=== PATIENT | male | born 1935 | race Caucasian/White ===

== ENCOUNTER 2017-02-28 07:46 | Outpatient (CLI) | payer MEDICARE, BC ==
[2017-02-28 12:54] LABS: BASOPHILS % (AUTO) 0.4 %; EOSINOPHILS # (AUTO) 0.2 10^3/uL (0.0-0.7); EOSINOPHILS % (AUTO) 2.6 %; HCT - HEMATOCRIT 42.2 % (42.0-52.0); HGB - HEMOGLOBIN 14.2 g/dL (14.0-18.0); LYMPHOCYTES # (AUTO) 2.7 10^3/uL (1.5-3.5); LYMPHOCYTES % (AUTO) 45.1 %; MEAN CORPUSCULAR HEMOGLOBIN 31.2 pg (27.0-31.0); MEAN CORPUSCULAR HGB CONC 33.8 g/dL (32.0-36.0); MEAN CORPUSCULAR VOLUME 92.2 fL (80.0-94.0); MEAN PLATELET VOLUME 7.7 fL (7.4-11.4); MONOCYTES # (AUTO) 0.5 10^3/uL (0.0-1.0); MONOCYTES % (AUTO) 8.1 %; NEUTROPHILS # (AUTO) 2.6 10^3/uL (1.5-6.6); NEUTROPHILS % (AUTO) 43.8 %; RED BLOOD COUNT 4.57 10^6/uL (4.70-6.10); UNCORRECTED WHITE BLOOD COUNT 5.9 x10^3/uL; WHITE BLOOD COUNT 5.9 x10^3/uL (4.8-10.8)
[2017-02-28 12:55] LABS: ALBUMIN/GLOBULIN RATIO 1.3 (1.0-2.2); BUN - BLOOD UREA NITROGEN 17 mg/dL (6-20); CALCIUM 8.9 mg/dL (8.5-10.3); CARBON DIOXIDE - CO2 24 mmol/L (21-32); CHLORIDE 108 mmol/L (101-111); CHOL/HDL RATIO 3.3 (<5.0); CHOLESTEROL 146 mg/dL; CREATININE 0.9 mg/dL (0.6-1.2); GFR - MDRD 81 (>89); GLUCOSE 86 mg/dL (70-100); HDL CHOLESTEROL 44 mg/dL; LDL/HDL RATIO 2.1 (<3.6); POTASSIUM 3.9 mmol/L (3.5-5.0); SODIUM 138 mmol/L (135-145); TOTAL PROTEIN 6.7 g/dL (6.7-8.2); TRIGLYCERIDES 55 mg/dL; VLDL CHOLESTEROL 11 mg/dL
[2017-02-28 13:03] LABS: HEMOGLOBIN A1C 0.63 g/dL
== END 2017-02-28 07:47 | disposition home or self-care (01) ==
LOC: LAB.F 07:46
PROVIDERS: ATTEND Internal Medicine
DX: R89.9 Unspecified abnormal finding in specimens from other organs, systems and tissues (principal); Z79.899 Other long term (current) drug therapy; E78.5 Hyperlipidemia, unspecified; N40.0 Benign prostatic hyperplasia without lower urinary tract symptoms; H40.9 Unspecified glaucoma
CPT/HCPCS: 36415; 80053; 80061; 83036; 84443; 85025

== ENCOUNTER 2018-01-11 10:25 | Outpatient (CLI) | payer MEDICARE, BC ==
--- NOTE | 2018-01-11 12:10 | Ultrasound Report ---
Procedure Date: 01/11/2018 Accession Number: [id number] / [id number] Procedure: US - Carotid Doppler Complete CPT Code: FULL RESULT: EXAM: BILATERAL CAROTID AND VERTEBRAL ARTERY DUPLEX DOPPLER ULTRASOUND: EXAM DATE: 01/11/2018 11:59 AM CLINICAL HISTORY: Diplopia. COMPARISON: None. TECHNIQUE: Grayscale imaging, color Doppler, and duplex spectral Doppler were used to evaluate the carotid and vertebral arteries bilaterally. Static images were obtained. FINDINGS: No significant plaque is identified in the right or left common or internal carotid arteries. Normal antegrade flow is present in bilateral vertebral arteries. VELOCITIES (cm/sec): Right CCA mid: PSV 80 cm/sec CCA dist: PSV 59 cm/sec ICA prox: PSV 25 cm/sec, EDV 8 cm/sec ICA mid: PSV 32 cm/sec, EDV 12 cm/sec ICA dist: PSV 59 cm/sec, EDV 20 cm/sec ECA: PSV 81 cm/sec Vert: PSV 60 cm/sec ICA/CCA: 1.0 Left CCA mid: PSV 62 cm/sec CCA dist: PSV 62 cm/sec ICA prox: PSV 61 cm/sec, EDV 24 cm/sec ICA mid: PSV 63 cm/sec, EDV 21 cm/sec ICA dist: PSV 63 cm/sec, EDV 23 cm/sec ECA: PSV 67 cm/sec Vert: PSV 26 cm/sec ICA/CCA: 1.0 ICA diameter stenosis: Right: <50% by velocity and <70% by NASCET criteria. Left: <50% by velocity and <70% by NASCET criteria. IMPRESSION: 1. No significant bilateral carotid artery plaquing. 2. In the right carotid artery there are no elevated carotid artery velocities to suggest hemodynamically significant stenosis. 3. In the left carotid artery there are no elevated carotid artery velocities to suggest hemodynamically significant stenosis. 4. Normal antegrade flow is present in bilateral vertebral arteries. General Recommendations: Stenosis =50% ICA - Follow-up ultrasound 6-12 months Stenosis <50% ICA - High Risk Patient with plaque - Follow-up ultrasound 1-2 years Normal Study but High Risk Patient - Follow-up ultrasound 3-5 years Management recommendations and diagnostic criteria are based on current IAC endorsed standards in Carotid Artery Stenosis: Grayscale and Doppler Ultrasound Diagnosis. Validated velocity measurements with angiographic measurements and velocity criteria are extrapolated from diameter data as defined by the Society of Radiologists in Ultrasound Consensus Conference Radiology 2003; 229;340-346. RADIA
== END 2018-01-11 10:26 | disposition home or self-care (01) ==
LOC: DI 10:25
PROVIDERS: ATTEND Ophthalmology
DX: H53.2 Diplopia (principal)
CPT/HCPCS: 93880

== ENCOUNTER 2018-03-18 07:47 | Outpatient (CLI) | payer MEDICARE, BC ==
[2018-03-18 13:24] LABS: BASOPHILS % (AUTO) 0.6 %; EOSINOPHILS # (AUTO) 0.2 10^3/uL (0.0-0.7); EOSINOPHILS % (AUTO) 3.9 %; HGB - HEMOGLOBIN 14.7 g/dL (14.0-18.0); LYMPHOCYTES # (AUTO) 2.3 10^3/uL (1.5-3.5); LYMPHOCYTES % (AUTO) 35.5 %; MEAN CORPUSCULAR HEMOGLOBIN 31.7 pg (27.0-31.0); MEAN CORPUSCULAR HGB CONC 34.2 g/dL (32.0-36.0); MEAN CORPUSCULAR VOLUME 92.8 fL (80.0-94.0); MEAN PLATELET VOLUME 7.9 fL (7.4-11.4); MONOCYTES # (AUTO) 0.5 10^3/uL (0.0-1.0); MONOCYTES % (AUTO) 8.4 %; NEUTROPHILS # (AUTO) 3.3 10^3/uL (1.5-6.6); NEUTROPHILS % (AUTO) 51.6 %; PLT - PLATELET COUNT 219 10^3/uL (130-450); RED BLOOD COUNT 4.65 10^6/uL (4.70-6.10); RED CELL DISTRIBUTION WIDTH 14.4 % (12.0-15.0); WHITE BLOOD COUNT 6.4 x10^3/uL (4.8-10.8)
[2018-03-18 13:40] LABS: ALBUMIN 3.9 g/dL (3.2-5.5); ALBUMIN/GLOBULIN RATIO 1.3 (1.0-2.2); ALKALINE PHOSPHATASE 49 IU/L (42-121); ALT ALANINE AMINOTRANSFERASE 30 IU/L (10-60); AST ASPARTATE AMINOTRANSFERASE 28 IU/L (10-42); BILIRUBIN,TOTAL 0.8 mg/dL (0.2-1.0); BUN - BLOOD UREA NITROGEN 16 mg/dL (6-20); CALCIUM 9.4 mg/dL (8.5-10.3); CARBON DIOXIDE - CO2 26 mmol/L (21-32); CHLORIDE 105 mmol/L (101-111); CHOL/HDL RATIO 3.8 (<5.0); CHOLESTEROL 184 mg/dL; CREATININE 0.8 mg/dL (0.6-1.2); GFR - MDRD 93 (>89); GLUCOSE 121 mg/dL (70-100); HDL CHOLESTEROL 49 mg/dL; LDL CHOLESTEROL,CALCULATED 117 mg/dL; LDL/HDL RATIO 2.4 (<3.6); SODIUM 140 mmol/L (135-145); TOTAL PROTEIN 6.8 g/dL (6.7-8.2); VLDL CHOLESTEROL 18 mg/dL
[2018-03-19 10:08] LABS: HB2 TOTAL 15.4 g/dL; HEMOGLOBIN A1C 0.6 g/dL; HEMOGLOBIN A1C % 5.7 % (4.6-6.2)
== END 2018-03-18 07:48 | disposition home or self-care (01) ==
LOC: LAB.F 07:47
PROVIDERS: ATTEND Internal Medicine
DX: R89.9 Unspecified abnormal finding in specimens from other organs, systems and tissues (principal); N40.0 Benign prostatic hyperplasia without lower urinary tract symptoms; E78.5 Hyperlipidemia, unspecified; I10 Essential (primary) hypertension; Z79.899 Other long term (current) drug therapy; Z12.5 Encounter for screening for malignant neoplasm of prostate; R73.9 Hyperglycemia, unspecified
CPT/HCPCS: 36415; 80053; 80061; 83036; 85025; G0103; 83721; 84153

== ENCOUNTER → 2018-03-25 | Outpatient (CLI) | payer MEDICARE, BC ==
[2018-03-25 20:15] LABS: HB2 TOTAL 15.4 g/dL; HEMOGLOBIN A1C 0.57 g/dL; HEMOGLOBIN A1C % 5.5 % (4.6-6.2)
== END ==
LOC: LAB.R 08:00
PROVIDERS: ATTEND Internal Medicine
DX: R73.9 Hyperglycemia, unspecified (principal)
CPT/HCPCS: 83036

== ENCOUNTER 2018-06-11 08:05 | Outpatient (CLI) | payer MEDICARE, BC ==
[2018-06-11 11:53] LABS: ALT ALANINE AMINOTRANSFERASE 28 IU/L (10-60); AST ASPARTATE AMINOTRANSFERASE 25 IU/L (10-42); LDL CHOLESTEROL,DIRECT 95 mg/dL
== END 2018-06-11 08:06 | disposition home or self-care (01) ==
LOC: LAB.F 08:05
PROVIDERS: ATTEND Internal Medicine
DX: E78.5 Hyperlipidemia, unspecified (principal); Z79.899 Other long term (current) drug therapy
CPT/HCPCS: 36415; 83721; 84450; 84460

== ENCOUNTER 2019-03-24 08:28 | Outpatient (CLI) | payer MEDICARE, BC ==
[2019-03-24 18:31] LABS: BILIRUBIN,URINE NEGATIVE (NEGATIVE); GLUCOSE, URINE (UA) NEGATIVE (NEGATIVE); KETONES,URINE (UA) NEGATIVE (NEGATIVE); LEUKOCYTE ESTERASE, URINE NEGATIVE (NEGATIVE); NITRITE,URINE NEGATIVE (NEGATIVE); OCCULT BLOOD,URINE TRACE-INTA (NEGATIVE); PROTEIN,URINE NEGATIVE (NEGATIVE); UROBILINOGEN,URINE 0.2 (NORMAL) E.U./dL (NORMAL)
[2019-03-24 18:36] LABS: CLARITY,URINE CLEAR (CLEAR)
[2019-03-24 18:49] LABS: RBC,URINE None Seen /HPF (0-5); SQUAMOUS EPITHELIAL CELL,UR NONE SEEN (<= Few)
[2019-03-24 18:50] LABS: BACTERIA,URINE None Seen /HPF (None Seen)
[2019-03-24 20:34] LABS: ALBUMIN 3.6 g/dL (3.2-5.5); ALBUMIN/GLOBULIN RATIO 1.2 (1.0-2.2); ALKALINE PHOSPHATASE 41 IU/L (42-121); ALT ALANINE AMINOTRANSFERASE 26 IU/L (10-60); AST ASPARTATE AMINOTRANSFERASE 27 IU/L (10-42); BILIRUBIN,TOTAL 0.7 mg/dL (0.2-1.0); BUN - BLOOD UREA NITROGEN 13 mg/dL (6-20); CARBON DIOXIDE - CO2 28 mmol/L (21-32); CHLORIDE 109 mmol/L (101-111); CHOL/HDL RATIO 3.3 (<5.0); CHOLESTEROL 146 mg/dL; CREATININE 0.8 mg/dL (0.6-1.2); GFR - MDRD 93 (>89); GLUCOSE 126 mg/dL (70-100); HDL CHOLESTEROL 44 mg/dL; LDL CHOLESTEROL,CALCULATED 90 mg/dL; SODIUM 143 mmol/L (135-145); TOTAL PROTEIN 6.5 g/dL (6.7-8.2); VLDL CHOLESTEROL 12 mg/dL
== END 2019-03-24 08:29 | disposition home or self-care (01) ==
LOC: LAB.S 08:28
PROVIDERS: ATTEND Family Medicine
DX: Z00.00 Encounter for general adult medical examination without abnormal findings (principal); I10 Essential (primary) hypertension
CPT/HCPCS: 36415; 80053; 80061; 81001; 83721

== ENCOUNTER 2020-03-23 07:27 | Outpatient (CLI) | payer MEDICARE, BC ==
[2020-03-23 15:12] LABS: HGB - HEMOGLOBIN 14.3 g/dL (14.0-18.0); MEAN CORPUSCULAR HEMOGLOBIN 30.5 pg (27.0-31.0); MEAN CORPUSCULAR HGB CONC 31.6 g/dL (32.0-36.0); MEAN CORPUSCULAR VOLUME 96.4 fL (80.0-94.0); MEAN PLATELET VOLUME 9.8 fL (7.4-11.4); RED BLOOD COUNT 4.69 10^6/uL (4.70-6.10); RED CELL DISTRIBUTION WIDTH 13.5 % (12.0-15.0); WHITE BLOOD COUNT 5.3 x10^3/uL (4.8-10.8)
[2020-03-23 15:44] LABS: ALBUMIN 3.8 g/dL (3.2-5.5); ALBUMIN/GLOBULIN RATIO 1.2 (1.0-2.2); ALKALINE PHOSPHATASE 45 IU/L (42-121); ALT ALANINE AMINOTRANSFERASE 29 IU/L (10-60); AST ASPARTATE AMINOTRANSFERASE 23 IU/L (10-42); BILIRUBIN,TOTAL 0.7 mg/dL (0.2-1.0); BUN - BLOOD UREA NITROGEN 14 mg/dL (6-20); CALCIUM 8.8 mg/dL (8.5-10.3); CARBON DIOXIDE - CO2 27 mmol/L (21-32); CHLORIDE 108 mmol/L (101-111); CHOLESTEROL 141 mg/dL; CREATININE 0.9 mg/dL (0.6-1.2); GLUCOSE 139 mg/dL (70-100); HDL CHOLESTEROL 47 mg/dL; LDL CHOLESTEROL,CALCULATED 83 mg/dL; LDL/HDL RATIO 1.8 (<3.6); SODIUM 140 mmol/L (135-145); VLDL CHOLESTEROL 11 mg/dL
[2020-03-23 17:23] LABS: HEMOGLOBIN A1c% 5.9 % (4.27-6.07)
== END 2020-03-23 07:28 | disposition home or self-care (01) ==
LOC: LAB.S 07:27
PROVIDERS: ATTEND Family Medicine
DX: Z00.00 Encounter for general adult medical examination without abnormal findings (principal); I10 Essential (primary) hypertension; R73.9 Hyperglycemia, unspecified
CPT/HCPCS: 36415; 80053; 80061; 83036; 83721; 84153; 85027

== ENCOUNTER 2020-10-06 17:55 | Emergency (ER) | payer MEDICARE, BC ==
[2020-10-06 18:09] VITALS: BP 141/73
[2020-10-06] MEDS ORDERED: LIDOCAINE-EPINEPH-TETRACAINE 3 ML SYRINGE TOP STA (18:16)
--- NOTE | 2020-10-06 18:17 | ED Physician Documentation ---
PD HPI UPPER EXT INJURY - Stated complaint Stated Complaint: GLF/HAND INJURY - Chief complaint Chief Complaint: Laceration - History obtained from History obtained from: Patient, Family () - Additonal information Additional information: 84-year-old gentleman who is up-to-date on tetanus was out hiking around 10 AM this morning and tripped and fell over a sharp edge and landed palms first and has some deep scrape/lacerations on both palms. No other injuries of note. Review of Systems Constitutional: denies: Fever, Chills Nose: reports: Reviewed and negative Throat: reports: Reviewed and negative PD PAST MEDICAL HISTORY - Past Medical History Cardiovascular: Hypertension Respiratory: None Endocrine/Autoimmune: None GI: Colon polyps : None HEENT: None Psych: None Musculoskeletal: None Derm: None - Past Surgical History Ortho: Other - Present Medications Home Medications: Ambulatory Orders Medication Instructions Recorded Confirmed Doxazosin [Cardura] 1 mg PO DAILY 12/30/14 10/06/20 Finasteride 5 mg PO DAILY 12/30/14 10/06/20 Rosuvastatin Calcium [Crestor] 5 mg PO DAILY 12/30/14 10/06/20 Ascorbic Acid [Vitamin C] 500 mg PO DAILY 04/28/15 10/06/20 Multivitamin [Multivitamins] 1 tab PO DAILY 04/28/15 10/06/20 [place]-3/Dha/Epa/Fish Oil [Fish Oil] 1,400 mg PO DAILY 04/28/15 10/06/20 diphenhydrAMINE [Benadryl] 1 tab PO DAILY 04/28/15 10/06/20 Bacitracin Zinc Oint 1 applic TOP BID #1 gm 10/06/20 Brimonidine 0.2% Ophth Drops 1 drops BID 10/06/20 10/06/20 [Alphagan P 0.2% Ophth Drops] - Allergies Allergies/Adverse Reactions: Allergies Allergy/AdvReac Type Severity Reaction Status Date / Time No Known Drug Allergies Allergy Verified 10/06/20 18:09 PD ED PE NORMAL - Vitals Vital signs reviewed: Yes - General General: Alert and oriented X 3, No acute distress - HEENT HEENT: PERRL, EOMI - Neck Neck: Supple, no meningeal sign, No bony TTP - Extremities Extremities: Other (He has deep scrapes on both palms, some retained material especially on the left.) - Neuro Neuro: Alert and oriented X 3, Normal speech Results - Vitals Vitals: Vital Signs - 24 hr 10/06/20 18:05 Temperature 36.8 C Heart Rate 60 Respiratory 16 Rate Blood Pressure 141/73 H O2 Saturation 99 Oxygen O2 Source Room air PD MEDICAL DECISION MAKING - ED course ED course: Wounds were anesthetized with lidocaine, epinephrine, tetracaine cream with excellent anesthesia. They were irrigated and debrided, there was some organic material that was scrubbed out with good effect. Dressed and counseled on wound care. Departure - Departure Disposition: Home, Self Care Clinical Impression: Abrasion Condition: Good Record reviewed to determine appropriate education?: Yes Instructions: ED Abrasion Prescriptions: Bacitracin Zinc Oint 1 applic TOP BID #1 gm Comments: I think he can keep the current dressing on until Sunday morning at which time large Band-Aids and the antibiotic ointment should be sufficient after soap and water gently. Return as needed for new or worsening symptoms.
[2020-10-06] MEDS ORDERED: BACITRACIN ZINC OINT 1 PACKET TOP STA (18:51)
== END 2020-10-06 19:02 | disposition home or self-care (01) ==
LOC: ED 17:55
DX: S61.412A Laceration without foreign body of left hand, initial encounter (principal); S61.411A Laceration without foreign body of right hand, initial encounter; W01.0XXA Fall on same level from slipping, tripping and stumbling without subsequent striking against object, initial encounter; Y93.01 Activity, walking, marching and hiking; I10 Essential (primary) hypertension
CPT/HCPCS: 99282; 99284; A9270

== ENCOUNTER 2023-03-10 14:40 | Emergency (ER) | payer MEDICARE, BC ==
[2023-03-10 14:49] VITALS: BP 153/87; O2SAT 93
--- NOTE | 2023-03-10 15:10 | ED Physician Documentation ---
History of Present Illness - Stated complaint Stated Complaint: GLF/HEAD INJURY - Chief complaint Chief Complaint: Trauma Hd/Nk - Additonal information Additional information: 87-year-old male presents emergency department for evaluation of closed head injury and right hand laceration. [place] was [place] the beach. And bent over to pick remover a rock when he lost his balance falling forward. He struck his head on the rocks as well as developed a laceration on the palmar side of his right hand near the small finger. Reports tetanus is up-to-date. He is not anticoagulated. He is able to get up on his own at the scene and drove himself to the emergency department. Review of Systems Constitutional: denies: Fever, Chills Nose: reports: Reviewed and negative Cardiac: reports: Reviewed and negative Respiratory: reports: Reviewed and negative GI: reports: Reviewed and negative Skin: reports: Abrasion (s), Laceration (s) PD PAST MEDICAL HISTORY - Past Medical History Cardiovascular: Hypertension Respiratory: None Neuro: None Endocrine/Autoimmune: None GI: Colon polyps : None HEENT: None Psych: None Musculoskeletal: None Derm: None - Past Surgical History Past Surgical History: Yes Ortho: Other HEENT: Other - Present Medications Home Medications: Ambulatory Orders Medication Instructions Recorded Confirmed Doxazosin [Cardura] 1 mg PO DAILY 12/30/14 10/06/20 Finasteride 5 mg PO DAILY 12/30/14 10/06/20 Rosuvastatin Calcium [Crestor] 5 mg PO DAILY 12/30/14 10/06/20 Ascorbic Acid [Vitamin C] 500 mg PO DAILY 04/28/15 10/06/20 Multivitamin [Multivitamins] 1 tab PO DAILY 04/28/15 10/06/20 [place]-3/Dha/Epa/Fish Oil [Fish Oil] 1,400 mg PO DAILY 04/28/15 10/06/20 diphenhydrAMINE [Benadryl] 1 tab PO DAILY 04/28/15 10/06/20 Bacitracin Zinc Oint 1 applic TOP BID #1 gm 10/06/20 Brimonidine 0.2% Ophth Drops 1 drops BID 10/06/20 10/06/20 [Alphagan P 0.2% Ophth Drops] - Allergies Allergies/Adverse Reactions: Allergies Allergy/AdvReac Type Severity Reaction Status Date / Time No Known Drug Allergies Allergy Verified 03/10/23 14:47 - Social History Does the pt smoke?: No Smoking Status: Never smoker Does the pt drink ETOH?: Yes Does the pt have substance abuse?: No - Immunizations Immunizations are current?: Yes PD ED PE NORMAL - General General: Alert and oriented X 3, No acute distress, Well developed/nourished - HEENT HEENT: PERRL, Ears normal, Moist mucous membranes. No: Atraumatic (Be a second ED visit superficial abrasion on the top of the occiput as well as the right forehead.) - Neck Neck: Supple, no meningeal sign, C-Spine cleared by NEXUS criteria - Cardiac Cardiac: RRR - Respiratory Respiratory: No respiratory distress - Abdomen Abdomen: Normal bowel sounds, Soft - Derm Derm: Other (4cm Jagged and macerated laceration palmar side right hand just below the MCP of the small finger that extends into the webbing space. Neurovascularly intact. 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 Eye Opening: Spontaneous Motor: Obeys Commands Verbal: Oriented GCS Score: 15 Results - Vitals Vitals: Vital Signs - 24 hr 03/10/23 14:44 Temperature 36.0 C L Heart Rate 74 Respiratory 16 Rate Blood Pressure 153/87 H O2 Saturation 93 Oxygen O2 Source Room air Procedures - Laceration (location) right hand Length in cm: 4 Wound type: Irregular, Into subcut fat, Contaminated Neurovascular status: Sensory intact, Motor intact Tendon involvement: Tendon intact Anesthesia: Lidocaine 1% Wound preparation: Hibiclens, Irrigated copiously NS, debridement of wound edges (traumatic laceration/avulsion) Skin layer closure: Nylon, Interrupted, Running, Size #-0 - enter number (4), Sutures - enter # (5) Other: Dressing applied, Tetanus UTD PD Medical Decision Making - ED course Complexity details: reviewed results, re-evaluated patient, d/w patient ED course: 87-year-old male presents emergency department for evaluation of right hand laceration as well as closed head injury. He was walking on the beach when he bent down to pick remover a rock tipping forward striking his head on the rocks. He is not anticoagulated. There was no loss of consciousness. He is able to get up on his own and drove himself to the hospital via POV. Tetanus is up-to-date as of 2019. He presents neurologically intact with no focal deficits. Negative for hemotympanums, raccoon eyes and delgado sign. No evidence of basilar skull fracture. I offered CT imaging given the forehead abrasions as well as his advanced age but he declined that today as he felt it was not necessary. We did discuss the usual emergent return precautions for concerns of headache and any neurologic symptoms. He did have a macerated laceration on the palm of his right hand at the base of the small finger that extended into the webbing space. This was cleaned and closed at the bedside. We discussed usual routine wound care as well as the emergent return precautions otherwise for concerns of infection. Departure - Departure Disposition: 01 Home, Self Care Clinical Impression: Fall from ground level Forehead abrasion Qualifiers: Encounter type: initial encounter Qualified Code(s): S00.81XA - Abrasion of other part of head, initial encounter Laceration of right hand Qualifiers: Encounter type: initial encounter Foreign body presence: without foreign body Qualified Code(s): S61.411A - Laceration without foreign body of right hand, initial encounter Condition: Stable Record reviewed to determine appropriate education?: Yes Comments: Arie you had a fall on the beach. You do have some superficial abrasions on your forehead. These can be cleansed every day with soap and water, pat it dry and then any antibiotic ointment such as bacitracin or Neosporin can be applied over them. He did have a laceration on the palm of your right hand. This was closed with 5 sutures, including 1 in the webbing space. This wound will take 7 to 10 days to heal. Sutures should not be removed before 10 days. In general wash the hand or shower normally each day, pat dry. Then apply antibiotic ointment and a simple bandage. This will affect her ability to play pool over the next week or 2. If you have any concerns of infection in the hand, redness swelling increased pain or milky drainage please return to the ER. You were offered a CT of the head to rule out intracranial hemorrhage. You declined that imaging today. If at any point you develop sudden severe headache, have uncontrolled vomiting, vision changes, slurred speech, facial droop, weakness in your arms or legs or have any concerns that you are not behaving or acting normally you should return immediately to the ER for repeat image. Forms: PCP List
== END 2023-03-10 16:03 | disposition home or self-care (01) ==
LOC: ED 14:40
DX: S00.81XA Abrasion of other part of head, initial encounter (principal); S61.411A Laceration without foreign body of right hand, initial encounter; W18.30XA Fall on same level, unspecified, initial encounter; Y92.832 Beach as the place of occurrence of the external cause; I10 Essential (primary) hypertension
CPT/HCPCS: 12002; 99283; 99284